=== PATIENT | female | born 2000 | race Caucasian/White ===

== ENCOUNTER → 2021-03-11 16:03 | Outpatient (CLI) | payer SELFPAY ==
[2021-03-11 18:29] LABS: Prolactin 29.7 ng/mL; Rheumatoid Factor < 10.0 IU/mL (<15)
[2021-03-13 12:29] LABS: Adrenocorticotropic Hormone 56.2 pg/mL (7.2-63.3); Thyroid Peroxidase AB < 8 IU/mL (0-34)
[2021-03-13 16:40] LABS: ANTINUCLEAR ANTIBODIES DIRECT Negative (Negative)
== END ==
PROVIDERS: PCP Family Medicine; Referring Provider Internal Medicine Endocrinology, Diabetes & Metabolism; Visit Provider Internal Medicine Endocrinology, Diabetes & Metabolism
DX: N91.1 Secondary amenorrhea (principal)
CPT/HCPCS: 36415; 82024; 84146; 86038; 86376; 86431